=== PATIENT | male | born 1955 | race Caucasian/White ===

== ENCOUNTER → 2017-02-14 | Outpatient (CLI) | payer BC, OTHER ==
[~2017-02-14] MED LIST: CLC100X PO; OXYC5TAB PO
== END | disposition home or self-care (01) ==
LOC: C.PATHSPEC 16:32
PROVIDERS: ATTEND Dermatology
DX: L82.1 Other seborrheic keratosis (principal)

== ENCOUNTER 2024-07-12 11:17 | Inpatient (IN) ==
--- NOTE | 2024-07-12 11:36 | Emergency Department Note ---
Impression & Plan Acute hypoxic respiratory failure, Influenza A, Shortness of breath, Elevated troponin ED Provider Note NAME: YU LOMAX AGE: 68 SEX: M : 1955 ARRIVES VIA: Ambulance INFORMANT: Patient ED PROVIDER(S): Jw Sexton DO CHIEF COMPLAINT: Shortness of breath HPI: Patient is a 68-year-old male who presents to the ER for symptoms that started this past Monday. He admits to a cough, congestion, and shortness of breath. Has been a dry cough. Any movement makes him significantly more short of breath. He was referred in. He denies any headache or change in vision. No belly pain. No nausea, vomiting, or diarrhea. No swelling of the cast. No recent trips or travel. No history of blood clots or clotting disorders. He is a smoker. Last known 3 days ago. ADDITIONAL HISTORY OBTAINED: Per HPI Chronic Medical/Social Conditions Affecting Care: Per HPI PAST MEDICAL HISTORY:See Below PAST SURGICAL HISTORY:See Below FAMILY HISTORY:See Below SOCIAL HISTORY:See Below HOME MEDICATIONS:See Below ALLERGIES:See Below VITALS:See Below PHYSICAL EXAMINATION: GENERAL: Sitting up in bed, alert, moderate distress on 2 L nasal cannula but able to talk in full sentences EYE EXAM: normal conjunctiva. PERRL and EOM's grossly intact. OROPHARYNX: no exudate, no erythema, lips, buccal mucosa, and tongue normal and mucous membranes are moist NECK: supple, no nuchal rigidity, no adenopathy, non-tender LUNGS: Poor air movement bilaterally with faint wheezing. Normal chest wall mechanics HEART: no murmurs, S1 normal and S2 normal ABDOMEN: abdomen soft, non-tender, normo-active bowel sounds, no masses, no rebound or guarding. UPPER EXTREMITIES: upper extremities are grossly normal. LOWER EXTREMITIES: No pitting edema. Calves are equal bilaterally NEURO EXAM: Normal sensorium, cranial nerves II-XII grossly intact, normal speech, no gross weakness of arms, no gross weakness of legs. MEDICAL DECISION MAKING: Patient is a 68-year-old male who presents to the ER for shortness of breath associate with upper respiratory symptoms. IV was established and blood work was obtained. He is a smoker. He was initially placed on 3 L nasal cannula and was titrated up to 6 and then placed on high flow. Respiratory rate and symptoms did improve. Labs show mild leukocytosis of 12,000. No significant anemia. BMP with LFTs bilirubin is unremarkable. Troponin was elevated at 29 which I do favor is likely demand as he was fairly hypoxic upon presentation. Viral panel was positive for influenza. Patient was initially given IV fluids, Rocephin and azithromycin prior to the result of influenza. Case was discussed with the hospitalist for further evaluation management treatment. Patient was given Consults/Care Managements Discussions: Per MDM Triage Nursing notes reviewed. Limited review of prior medical records performed Vital Signs: reviewed and remarkable for hypoxic and tachycardic Differential diagnosis: Differential diagnoses includes but is not limited to pneumonia, bronchitis, COPD/Asthma exacerbation, pneumothorax, pulmonary embolism, congestive heart failure, acute coronary syndrome ER treatment provided: See below Diagnostics interpreted by me include EKG and cardiac monitoring as listed below: -Cardiac Monitoring: An order was placed for continuous cardiac monitoring. The monitor shows a rate of 101 with sinus rhythm. -ECG: Sinus rhythm rate of 103 PVCs QTc 450 -Laboratory studies:Interpreted by me as stated above in MDM and shown below. Imaging studies: Xrays: As interpreted by me: Portable AP upright 1 view of the chest shows no focal infiltrate CTs show: none Procedures:none Critical Care: I have personally spent 40 minutes of critical care time in the direct management of this patient. This includes bedside care, interpretation of diagnostic studies, and testing, discussion with consultants, patient, and family members, and other required patient management activities. This 40 minutes is in excess of all separately billable procedures. Past Med/Surg History Problem List (Updated 07/12/24 @ 14:25 by Jw Sexton DO) Elevated troponin (Acute) Shortness of breath (Acute) Influenza A (Acute) Acute hypoxic respiratory failure (Acute) History of colon polyps Vitamin D deficiency Hepatic steatosis Prediabetes diet controlled GERD (gastroesophageal reflux disease) Hyperlipemia, mixed Cigarette nicotine dependence Tobacco abuse Actinic keratosis (Acute) Dysplastic nevus (Acute) Medical History Arthritis Surgical History History of colonoscopy History of tooth extraction History of tonsillectomy History of rotator cuff surgery History of cholecystectomy S/P appendectomy Family History Mother Diabetes Father Prostate cancer Denies family history of Ovarian cancer Myocardial infarction Breast cancer Colorectal cancer Stroke Social History Smoking Status: Current every day smoker Tobacco Type: Cigarettes Age Started Using Tobacco: 15; packs per day: 1; Cigarettes Per Day: 1 ppd > advised npo status; Second Hand Exposure: No; Do You Dip or Chew Tobacco: No; Hx Alcohol Use: Yes Alcohol type: beer Alcohol Intake Frequency: 4 or More x per/Week Hx Substance Use: No Preferred Language: Qatari Communication Ability: Effective Visual Impairment: No Limitations Hearing Ability: Normal Vulnerability Researcher Required: No Beliefs That Will Affect Care: None marital status: Current Living Situation: Spouse current occupational status: retired Feels Safe at Home: Yes caffeine: Yes (coffee) Dental Care, Regularly: No Physical Activity Frequency: Daily Seatbelt Use: always Sunscreen Use: No Allergies Allergies Allergy/AdvReac Type Severity Reaction Status Date / Time Penicillins Allergy Severe Hives Verified 07/12/24 10:09 Home Meds Home Medications Medication Instructions Recorded Confirmed loperamide 2 mg tablet 4 mg PO .TODAY PRN Diarrhea 12/02/23 07/12/24 Previous Rx's Medication Instructions Recorded atorvastatin 10 mg tablet 10 mg PO QAM #90 tabs 12/25/23 omeprazole 20 mg capsule,delayed 20 mg PO QAM #90 caps 12/29/23 release bupropion HCl 150 mg tablet,12 hr 150 mg PO BID #180 ea 01/02/24 sustained-release Results & Data (ED) Vital Signs Vital Signs - 24 hr 07/12/24 11:22 07/12/24 11:24 07/12/24 11:30 Temperature 37 C Temperature Source Oral Pulse Rate 100 H 104 H Pulse Rate [Apical] Pulse Rate from SpO2 Sensor Respiratory Rate 19 Respiratory Effort / Characteristics Blood Pressure 134/78 Blood Pressure Mean 96 Pulse Oximetry 87 L 87 L Oxygen Delivery Method Room Air Room Air Oxygen Flow Rate Fraction of Inspired Oxygen Sepsis Recent Fever Within 48 Hours No Sepsis New/Unexplained Change in Mental Status N/A Sepsis Action Taken by Nursing No Action Required Oxygen Flow Rate - Titration 4 Pulse Oximetry Post Tiitration 94 07/12/24 11:30 07/12/24 11:33 07/12/24 11:36 Temperature Temperature Source Pulse Rate 97 H Pulse Rate [Apical] Pulse Rate from SpO2 Sensor 89 Respiratory Rate 24 Respiratory Effort / Characteristics Spontaneous Short of Breath SOB on Exertion Blood Pressure 134/97 Blood Pressure Mean 125 Pulse Oximetry 93 Oxygen Delivery Method Nasal Cannula Oxygen Flow Rate 4 Fraction of Inspired Oxygen Sepsis Recent Fever Within 48 Hours Sepsis New/Unexplained Change in Mental Status Sepsis Action Taken by Nursing Oxygen Flow Rate - Titration Pulse Oximetry Post Tiitration 07/12/24 12:00 07/12/24 12:03 07/12/24 12:46 Temperature Temperature Source Pulse Rate 106 H Pulse Rate [Apical] 107 H Pulse Rate from SpO2 Sensor 97 H Respiratory Rate 26 H 26 H Respiratory Effort / Characteristics Spontaneous Short of Breath Blood Pressure 139/87 Blood Pressure Mean 90 Pulse Oximetry 96 94 Oxygen Delivery Method Nasal Cannula High Flow Nasal Cannula Oxygen Flow Rate 4 20 Fraction of Inspired Oxygen 40 Sepsis Recent Fever Within 48 Hours Sepsis New/Unexplained Change in Mental Status Sepsis Action Taken by Nursing Oxygen Flow Rate - Titration Pulse Oximetry Post Tiitration 07/12/24 13:00 07/12/24 13:24 07/12/24 13:30 Temperature Temperature Source Pulse Rate 113 H 109 H Pulse Rate [Apical] Pulse Rate from SpO2 Sensor 95 H 109 H Respiratory Rate 25 H 21 Respiratory Effort / Characteristics Blood Pressure 111/74 114/51 L Blood Pressure Mean 86 60 Pulse Oximetry 95 94 Oxygen Delivery Method High Flow Nasal Cannula High Flow Nasal Cannula Oxygen Flow Rate 20 20 Fraction of Inspired Oxygen 40 40 Sepsis Recent Fever Within 48 Hours Sepsis New/Unexplained Change in Mental Status Sepsis Action Taken by Nursing Oxygen Flow Rate - Titration Pulse Oximetry Post Tiitration Laboratory Data 07/12/24 11:25 07/12/24 11:25 Lab Results 07/12/24 07/12/24 Range/Units 11:25 11:29 WBC 12.26 H (4.8-10.8) K/ul RBC 4.91 (4.70-6.10) M/uL Hgb 14.1 (14.0-18.0) g/dl Hct 42.8 (42.0-52.0) % MCV 87.2 (80.0-100.0) fL MCH 28.7 (25.0-34.0) pg MCHC 32.9 (32.0-36.0) g/dL RDW Std Deviation 46.6 H (36.4-46.3) fL RDW Coeff of Eben 14.6 H (11.5-14.5) % Plt Count 221 (130-400) K/uL MPV 9.7 (9.4-12.4) fL Immature Gran % (Auto) 0.6 % Neut % (Auto) 79.4 % Lymph % (Auto) 9.5 % [place] % (Auto) 10.1 % Eos % (Auto) 0.2 % Baso % (Auto) 0.2 % Neut # (Auto) 9.74 H (1.40-6.50) K/uL Lymph # (Auto) 1.16 L (1.20-3.40) K/uL [place] # (Auto) 1.24 H (0.11-0.59) K/uL Eos # (Auto) 0.03 (0.00-0.50) K/uL Baso # (Auto) 0.02 (0.00-0.20) K/uL Immature Gran # (Auto) 0.07 (0.01-0.20) K/uL Sodium 136 (136-145) mmol/L Potassium 3.5 (3.5-5.1) mmol/L Chloride 102 (98-107) mmol/L Carbon Dioxide 25 (21-32) mmol/L Anion Gap 9 (3-11) BUN 11 (6-23) mg/dl Creatinine 0.91 (0.6-1.4) mg/dl Est Cr Clr Drug Dosing 79.9 ml/min eGFR 91.80 BUN/Creatinine Ratio 12.1 (10-20) Glucose 130 H (70-99(Fasting)) mg/dl Calcium 8.9 (8.6-10.3) mg/dl Total Bilirubin 0.5 (0.2-1.0) mg/dl AST 67 H (13-39) U/L ALT 27 (7-52) U/L Alkaline Phosphatase 81 (34-104) U/L Troponin I High Sens 29.9 H (0-20) pg/ml Total Protein 7.3 (6.0-8.3) gm/dl Albumin 4.0 (3.4-5.0) gm/dl Globulin 3.3 (2.5-4.0) gm/dl Albumin/Globulin Ratio 1.2 (0.9-2) Lipase 5 L (11-82) U/L Adenovirus (PCR) Not Detected (NotDetected) B. pertussis DNA (PCR) Not Detected (NotDetected) B.parapertussis DNA PCR Not Detected (NotDetected) C. pneumoniae DNA (PCR) Not Detected (NotDetected) Coronavirus OC43 (PCR) Not Detected (NotDetected) Coronavirus HKU1 (PCR) Not Detected (NotDetected) Coronavirus 229E (PCR) Not Detected (NotDetected) SARS-CoV-2 (PCR) Not Detected (NotDetected) Coronavirus NL63 (PCR) Not Detected (NotDetected) Human Metapneumovir PCR Not Detected (NotDetected) Influenza A (H3) PCR DETECTED A (NotDetected) Influenza Type B (PCR) Not Detected (NotDetected) M. pneumoniae (PCR) Not Detected (NotDetected) Parainfluenza 1 (PCR) Not Detected (NotDetected) Parainfluenza 2 (PCR) Not Detected (NotDetected) Parainfluenza 3 (PCR) Not Detected (NotDetected) Parainfluenza 4 (PCR) Not Detected (NotDetected) RSV (PCR) Not Detected (NotDetected) Entero/Rhino (PCR) Not Detected (NotDetected) Administered Medications Discontinued Medications Albuterol (Albut/Ipratrop 3mg/0.5mg Neb 3 Ml Vial) 6 ml NEB NOW STA; Protocol Stop: 07/12/24 11:32 Last Admin: 07/12/24 11:50 Dose: 6 ml Documented By: DAYSIW Azithromycin (Azithromycin 250 Mg Tab) 500 mg PO NOW ONE Stop: 07/12/24 12:33 Last Admin: 07/12/24 12:53 Dose: 500 mg Documented By: DAYSIW Ceftriaxone Sodium (Rocephin) 2,000 mg in 50 mls @ 100 mls/hr IV NOW STA Stop: 07/12/24 13:01 Last Infusion: 07/12/24 13:28 Dose: Infused Documented By: Admin: 07/12/24 12:53 Dose: 100 mls/hr Documented By: KRISTI Methylprednisolone (Methylprednisolone 125 Mg/2 Ml Vial) 60 mg IV NOW STA Stop: 07/12/24 11:32 Last Admin: 07/12/24 11:50 Dose: 60 mg Documented By: NDW Imaging Data Radiologist's Impression: Chest X-Ray 07/12/24 11:31 XR chest 1V portable HISTORY: 68 years-old Male Chest pain, nonspecific COMPARISON: 12/02/2023 TECHNIQUE: AP view the chest FINDINGS: Cardiac silhouette is upper limits of normal in size. No pneumothorax, pleural effusion or airspace consolidation. Bones appear grossly intact. IMPRESSION: Cardiomegaly without acute process. ACT 112: Negative or not required by law. The above report was generated using voice recognition software. It may contain grammatical, syntax or spelling errors. Electronically signed by: Edmar Christianson M.D. 07/12/2024 12:32 PM Discharge Plan Visit Data Chief Complaint: Shortness of Breath/Dyspnea Stated Complaint: SOB ED Provider: Jw Sexton Discharge Problem: Acute hypoxic respiratory failure, Influenza A, Shortness of breath, Elevated troponin Forms Stand Alone Forms: My [facility] [place] [address]lines Prescriptions Prescriptions: No Action atorvastatin 10 mg tablet 10 mg PO QAM Qty: 90 3RF omeprazole 20 mg capsule,delayed release(DR/EC) 20 mg PO QAM Qty: 90 3RF bupropion HCl 150 mg tablet sustained-release 12 hr 150 mg PO BID Qty: 180 3RF loperamide [Anti-Diarrhea] 2 mg Tablet 4 mg PO .TODAY PRN (Reason: Diarrhea) Rx Instructions: administer after each loose stool until symptoms controlled; do not exceed 8 mg per 24 hrs Referrals Referrals: Mary Jane David MD [Primary Care Provider] -
[2024-07-12] MEDS: ALBUT/IPRATROP 3MG/0.5MG NEB 3 ML VIAL NEB STA (11:50)
[2024-07-12] MEDS: methylPREDNISolone 125 MG/2 ML VIAL IV STA (11:50)
[2024-07-12 11:55] LABS: Basophils # (auto) 0.02 K/uL (0.00-0.20); Basophils % (auto) 0.2 %; Eosinophils # (auto) 0.03 K/uL (0.00-0.50); Eosinophils % (auto) 0.2 %; Hematocrit (blood only) 42.8 % (42.0-52.0); Hemoglobin 14.1 g/dl (14.0-18.0); Immature Granulocytes # (auto) 0.07 K/uL (0.01-0.20); Immature Granulocytes % (auto) 0.6 %; Lymphocytes # (auto) 1.16 K/uL (1.20-3.40); Lymphocytes % (auto) 9.5 %; Mean Corpuscular Hemoglobin 28.7 pg (25.0-34.0); Mean Corpuscular Hgb Conc 32.9 g/dL (32.0-36.0); Mean Corpuscular Volume 87.2 fL (80.0-100.0); Mean Platelet Volume 9.7 fL (9.4-12.4); Monocytes # (auto) 1.24 K/uL (0.11-0.59); Monocytes % (auto) 10.1 %; Neutrophils # (auto) 9.74 K/uL (1.40-6.50); Neutrophils % (auto) 79.4 %; Platelet Count 221 K/uL (130-400); RDW Coefficient of Variation 14.6 % (11.5-14.5); RDW Standard Deviation 46.6 fL (36.4-46.3); Red Blood Count 4.91 M/uL (4.70-6.10); White Blood Count 12.26 K/ul (4.8-10.8)
[2024-07-12 12:11] LABS: Albumin Globulin Ratio 1.2 (0.9-2); BUN Creatinine Ratio 12.1 (10-20); Bilirubin,Total 0.5 mg/dl (0.2-1.0); Calcium 8.9 mg/dl (8.6-10.3); Creatinine Clr Calc Pharmacy 79.9 ml/min; Globulin 3.3 gm/dl (2.5-4.0); Potassium 3.5 mmol/L (3.5-5.1); Total Protein 7.3 gm/dl (6.0-8.3)
[2024-07-12 12:17] LABS: Troponin I High Sensitivity 29.9 pg/ml (0-20)
[2024-07-12 12:33] LABS: Adenovirus PCR Not Detected (NotDetected); Bordetella parapertussis PCR Not Detected (NotDetected); Bordetella pertussis PCR Not Detected (NotDetected); Chlamydia pneumoniae PCR Not Detected (NotDetected); Coronavirus 229E PCR Not Detected (NotDetected); Coronavirus CoV-2 (COVID19)PCR Not Detected (NotDetected); Coronavirus HKU1 PCR Not Detected (NotDetected); Coronavirus NL63 PCR Not Detected (NotDetected); Coronavirus OC43PCR Not Detected (NotDetected); Human Metapneumovirus PCR Not Detected (NotDetected); Influenza A (H3) PCR DETECTED (NotDetected); Influenza B PCR Not Detected (NotDetected); Mycoplasma pneumoniae PCR Not Detected (NotDetected); Parainfluenza Virus 1 PCR Not Detected (NotDetected); Parainfluenza Virus 2 PCR Not Detected (NotDetected); Parainfluenza Virus 3 PCR Not Detected (NotDetected); Parainfluenza Virus 4 PCR Not Detected (NotDetected); Respiratory Syncytial VirusPCR Not Detected (NotDetected); Rhinovirus/Enterovirus PCR Not Detected (NotDetected)
--- NOTE | 2024-07-12 12:34 | XRay Report ---
XR chest 1V portable HISTORY: 68 years-old Male Chest pain, nonspecific COMPARISON: 12/02/2023 TECHNIQUE: AP view the chest FINDINGS: Cardiac silhouette is upper limits of normal in size. No pneumothorax, pleural effusion or airspace c onsolidation. Bones appear grossly intact. IMPRESSION: Cardiomegaly without acute process. ACT 112: Negative or not required by law. The above report was generated using voice recognition software. It may contain grammatical, syntax o r spelling errors. Electronically signed by: Edmar Christianson M.D. 07/12/2024 12:32 PM
[2024-07-12] MEDS: AZITHROMYCIN 250 MG TAB PO ONE (12:53)
[2024-07-12] MEDS: cefTRIAXone SODIUM 2,000 MG/50 ML BAG IV STA (12:53)
--- NOTE | 2024-07-12 14:25 | History & Physical Report ---
Date of Service July 12, 2024 Assessment & Plan (1) Influenza A: (2) Acute hypoxic respiratory failure: (3) Elevated troponin: (4) Tobacco abuse: Plan This patient is a 68-year-old male with a history of prediabetes, GERD, fatty liver, HL, current smoker, chronic diarrhea, who presents to the ER with nonproductive cough, SOB, and congestion x 2 days, found to have influenza A and acute respiratory failure with hypoxemia requiring high flow nasal cannula 20 L 40% FiO2 at the time of admission. #Influenza A/acute respiratory failure with hypoxemia-in the setting of him being a smoker but no formal diagnosis of COPD. Has wheezing and is currently requiring HFNC 20L 40% FiO2. CXR without pneumonia. Procalcitonin checked and negative so doubt secondary bacterial pneumonia. No antibiotics needed. Admit to PCU for telemetry monitoring given significant respiratory failure Start Tamiflu 75 Mg p.o. twice daily x 5-day course Continue supplemental O2 and wean off as able to keep pulse ox greater than 90% Give scheduled DuoNebs every 6 hours Continue IV steroids with Solu-Medrol 60 Mg IV twice daily as he is a 50 pack year smoker and likely has COPD along with the wheezing #Elevated troponin/hyperlipidemia-troponin mildly elevated at 29 and repeat 2 hours later 28. Most likely myocardial demand ischemia as he denies chest pain and ECG is without ischemic changes Trend serial troponin, no need for echocardiogram Continue home statin #Current waezji-28-twar-year smoker, did quit 3 days prior to admission due to acute illness. Encouraged ongoing smoking cessation Ordered nicotine patch as needed #Prediabetes-most recent hemoglobin A1c 6.0% and he is not on medications at home Given steroid usage as an inpatient, will order Accu-Cheks and supplemental NovoLog, can add basal insulin if needed Check hemoglobin A1c in the morning #Fatty liver/elevated AST-with known fatty liver demonstrated on liver ultrasound in 12/2023, here with AST elevated at 67 slightly worse than baseline. T. bili and ALT, alk phos all normal. Most likely secondary to baseline fatty liver and influenza can also elevate liver enzymes. No need for imaging Follow LFTs in the morning Okay to continue home statin #GERD/chronic diarrhea-his diarrhea that was ongoing for 6 months he reports is now resolved. Continue PPI, Imodium as needed #Anxiety disorder-stable Continue home bupropion DVT prophylaxis-Lovenox SQ, SCDs Disposition-admit to PCU History of Present Illness Chief Complaint: Cough, shortness of breath Primary Care Provider: Mary Jane David MD This patient is a 68-year-old male with a history of prediabetes, GERD, fatty liver, HL, current smoker, chronic diarrhea, who presents to the ER with nonproductive cough, SOB, and sinus and chest congestion x 2 days. Denies N/V, no headache or abdominal pain, no diarrhea. His is also acutely ill with similar symptoms. He tested positive for influenza A in the ED. CXR did not show any pneumonia or evidence of heart failure. He initially was placed on 3 LNC O2 and quickly had to be escalated to high flow nasal cannula 20 L and FiO2 of 40%. He will be admitted for influenza A and acute respiratory failure with hypoxemia. In the ED, he was given IV steroids, nebulizer treatment, and a dose of ceftriaxone and azithromycin. Allergies Allergy/AdvReac Type Severity Reaction Status Date / Time Penicillins Allergy Severe Hives Verified 07/12/24 10:09 Home Medications Medication Instructions Recorded Confirmed Type atorvastatin 10 mg tablet 10 mg PO QAM #90 tabs 12/25/23 07/12/24 Rx omeprazole 20 mg capsule,delayed 20 mg PO QAM #90 caps 12/29/23 07/12/24 Rx release bupropion HCl 150 mg tablet,12 hr 150 mg PO BID #180 ea 01/02/24 07/12/24 Rx sustained-release Past Med/Surg History Problem List Elevated troponin (Acute) Shortness of breath (Acute) Influenza A (Acute) Acute hypoxic respiratory failure (Acute) History of colon polyps Vitamin D deficiency Hepatic steatosis Prediabetes diet controlled GERD (gastroesophageal reflux disease) Hyperlipemia, mixed Cigarette nicotine dependence Tobacco abuse Actinic keratosis (Acute) Dysplastic nevus (Acute) Medical History Arthritis Surgical History History of colonoscopy History of tooth extraction History of tonsillectomy History of rotator cuff surgery right History of cholecystectomy S/P appendectomy Family History Mother Diabetes Father Prostate cancer Denies family history of Ovarian cancer Myocardial infarction Breast cancer Colorectal cancer Stroke Social History Smoking Status: Current every day smoker Tobacco Type: Cigarettes Age Started Using Tobacco: 15; packs per day: 1; Cigarettes Per Day: 20; Second Hand Exposure: No; Do You Dip or Chew Tobacco: No; Tobacco Cessation Education Requested by Patient: No Hx Alcohol Use: Yes Alcohol type: beer Alcohol Intake Frequency: 4 or More x per/Week Hx Substance Use: No Preferred Language: Spanish Communication Ability: Effective Visual Impairment: No Limitations Hearing Ability: Normal Field Cane Scale Clerk Required: No Beliefs That Will Affect Care: None marital status: Current Living Situation: Spouse current occupational status: retired Other Information That Helps Us Care for You: No Feels Safe at Home: Yes Safety Concerns: Feels Safe At This Time caffeine: Yes (coffee) Dental Care, Regularly: No Physical Activity Frequency: Daily Seatbelt Use: always Sunscreen Use: No Review of Systems Review of Systems: All systems reviewed & are unremarkable except as noted in HPI & below Physical Exam Constitutional: WD/WN, vitals as above (Appears ill) Eyes: PERRL, conjunctivae normal, anicteric sclerae ENMT: external ear and nose normal, oropharynx normal Neck: trachea midline, no thyromegaly Respiratory: + tachypneic (Mild when speaking in comp lete sentences); no cough Auscultation: + wheezes (Expiratory on the right); no crackles and no rhonchi Cardiovascular: RRR, no murmur, no edema Chest (Breasts): Chest: normal inspection of chest Gastrointestinal (Abdomen): normal bowel sounds, soft, nontender, no hepatosplenomegaly Musculoskeletal: Extremities: extremities normal to inspection; no cyanosis and no clubbing Skin: no rashes, warm and dry Neurologic: moves all extremities and awake; no focal motor deficits Psychiatric: A+Ox3, euthymic affect Lymphatic: no lymphedema Results & Data Results & Data Vital Signs (Past 12 Hours) Vital Signs Temp Pulse Pulse Resp BP Pulse Ox O2 Del Method 07/12/24 13:30 114/51 L 12/27/24 13:24 109 H 21 94 High Flow Nasal Cannula 07/12/24 13:00 113 H 25 H 111/74 95 High Flow Nasal Cannula 07/12/24 12:46 107 H 26 H 94 High Flow Nasal Cannula 07/12/24 12:03 106 H 26 H 96 Nasal Cannula 07/12/24 12:00 139/87 07/12/24 11:36 97 H 24 93 Nasal Cannula 07/12/24 11:30 134/97 07/12/24 11:30 87 L Room Air 07/12/24 11:24 104 H 07/12/24 11:22 37 C 100 H 19 134/78 87 L Room Air O2 Flow Rate FiO2 07/12/24 13:30 07/12/24 13:24 20 40 07/12/24 13:00 20 40 07/12/24 12:46 20 40 07/12/24 12:03 4 07/12/24 12:00 07/12/24 11:36 4 07/12/24 11:30 07/12/24 11:30 07/12/24 11:24 07/12/24 11:22 Laboratory Results CBC, BMP, LFTs, lipase, troponin, viral respiratory Bio[employer] panel reviewed Diagnostic Findings Chest x-ray image personally reviewed by me ECG Additional Comments: ECG on 07/12/2024 at 11:29 AM with sinus tachycardia with PVCs, rate 103, LAFB, no ischemic changes Code Status & VTE Plan Code Status Full code VTE Prophylaxis Plan VTE Prophylaxis will be ordered: Yes PG Care Time/CCT Total # of Minutes Spent Total Time Spent with Patient: Total time spent is greater than 50% in coordination of care (as documented) at patient's floor/unit and/or counseling patient: Coding Level of Care Code 74317 INT INP/OBS CARE 3/75MIN Diagnoses Influenza A J10.1 Acute hypoxic respiratory failure J96.01 Elevated troponin R79.89 Tobacco abuse Z72.0
--- NOTE | 2024-07-12 15:56 | Electrocardiogram Report ---
Test Reason : Blood Pressure : */* mmHG Vent. Rate : 103 BPM Atrial Rate : 103 BPM P-R Int : 170 ms QRS Dur : 90 ms QT Int : 344 ms P-R-T Axes : 70 -67 75 degrees QTcB Int : 450 ms Sinus tachycardia with frequent Premature ventricular complexes Left anterior fascicular block Abnormal ECG When compared with ECG of 02-Dec-2023 00:12, Premature ventricular complexes are now Present SD interval has decreased Vent. rate has increased by 46 bpm QRS axis Shifted left Confirmed by Wilder Oliveira ([id number]) on 07/12/2024 3:55:50 PM Referred By: Confirmed By: Wilder Oliveira
[2024-07-12] MEDS: OSELTAMIVIR PHOSPHATE 75 MG CAP PO STA (15:58)
[2024-07-12] MEDS ORDERED: ONDANSETRON INJ 2 MG/ML 2 ML VIAL IV PRN (16:43)
[2024-07-12] MEDS ORDERED: CARBOHYDRATES FOR HYPOGLYCEMIA PO PRN (16:43)
[2024-07-12] MEDS ORDERED: GLUCAGON FOR INJ 1 MG VIAL SQ PRN (16:43)
[2024-07-12] MEDS ORDERED: GLUCOSE 40% GEL 15 GM TUBE PO PRN (16:43)
[2024-07-12] MEDS ORDERED: NICOTINE 14 MG/24 HR PATCH TD PRN (16:43)
[2024-07-12] MEDS ORDERED: GLUCOSE 10 TAB/TUBE PO PRN (16:43)
[2024-07-12] MEDS ORDERED: DEXTROSE 50% 50 ML SYRINGE IV PRN (16:43)
[2024-07-12] MEDS ORDERED: ACETAMINOPHEN 325 MG TAB PO PRN (16:43)
[2024-07-12] MEDS ORDERED: LOPERAMIDE HCL 2 MG CAP PO PRN (16:58)
[2024-07-12] MEDS: INSULIN ASPART PER UNIT CHARGE SC SCH (17:21)
[2024-07-12] MEDS: ENOXAPARIN INJ 40 MG/0.4 ML SYR SQ SCH (17:24)
[2024-07-12] MEDS: ALBUT/IPRATROP 3MG/0.5MG NEB 3 ML VIAL NEB SCH (19:23)
[2024-07-12] MEDS: OSELTAMIVIR PHOSPHATE 75 MG CAP PO SCH (20:23)
[2024-07-12] MEDS: buPROPion SR 150 MG TABCR PO SCH (20:23)
[2024-07-12] MEDS: methylPREDNISolone 60 MG in SYRINGE 0 ML IV SCH (20:23)
[2024-07-12] MEDS ORDERED: methylPREDNISolone 125 MG/2 ML VIAL IV SCH (21:00)
[2024-07-13 08:57] LABS: Hematocrit (blood only) 41.7 % (42.0-52.0); Hemoglobin 13.7 g/dl (14.0-18.0); Mean Corpuscular Hemoglobin 28.5 pg (25.0-34.0); Mean Corpuscular Hgb Conc 32.9 g/dL (32.0-36.0); Mean Corpuscular Volume 86.7 fL (80.0-100.0); Mean Platelet Volume 9.5 fL (9.4-12.4); Platelet Count 231 K/uL (130-400); RDW Coefficient of Variation 14.6 % (11.5-14.5); RDW Standard Deviation 47.1 fL (36.4-46.3); Red Blood Count 4.81 M/uL (4.70-6.10); White Blood Count 16.62 K/ul (4.8-10.8)
[2024-07-13 09:17] LABS: Albumin Globulin Ratio 1.2 (0.9-2); Albumin Level 3.8 gm/dl (3.4-5.0); BUN Creatinine Ratio 18.8 (10-20); Bilirubin,Total 0.4 mg/dl (0.2-1.0); Calcium 9.2 mg/dl (8.6-10.3); Creatinine Clr Calc Pharmacy 77.8 ml/min; Globulin 3.1 gm/dl (2.5-4.0); Potassium 3.6 mmol/L (3.5-5.1); Total Protein 6.9 gm/dl (6.0-8.3)
[2024-07-13 09:30] LABS: Basophils # (auto) 0.02 K/uL (0.00-0.20); Basophils % (auto) 0.1 %; Eosinophils # (auto) 0.01 K/uL (0.00-0.50); Eosinophils % (auto) 0.1 %; Immature Granulocytes % (auto) 0.6 %; Lymphocytes # (auto) 0.84 K/uL (1.20-3.40); Lymphocytes % (auto) 5.1 %; Monocytes # (auto) 0.34 K/uL (0.11-0.59); Neutrophils # (auto) 15.31 K/uL (1.40-6.50); Neutrophils % (auto) 92.1 %
[2024-07-13] MEDS: ATORVASTATIN 10 MG TAB PO SCH (09:42)
[2024-07-13] MEDS: PANTOprazole 40 MG TAB PO SCH (09:42)
[2024-07-13 10:41] LABS: Estimated Average Glucose 131 mg/dl; Hemoglobin A1C 6.2 % (4.5-5.6)
--- NOTE | 2024-07-13 10:55 | Hospitalist Progress Note ---
<Statement entered by Janice Funez MD - 07/13/24 17:08> I have reviewed vital signs, chart notes, labs and imaging. I have also discussed the management of the patient with the JANE and I agree with the exam findings documented in the history and physical examination and the documented assessment and plan unless otherwise stated below. 68-year-old man with extensive smoking history admitted with acute hypoxic respiratory failure related to influenza A and presumed acute exacerbation of COPD hypoxia significantly improved though still requiring supplemental oxygen today, we will decrease his steroids continue Tamiflu Date of Service July 13, 2024 Assessment & Plan (1) Influenza A: Plan: This patient is a 68-year-old male with a history of prediabetes, GERD, fatty liver, HL, current smoker, chronic diarrhea, who presents to the ER with nonproductive cough, SOB, and congestion x 2 days, found to have influenza A and acute respiratory failure with hypoxemia requiring high flow nasal cannula 20 L 40% FiO2 at the time of admission. #Influenza A/acute respiratory failure with hypoxemia-in the setting of him being a smoker but no formal diagnosis of COPD. He is no longer wheezing on examination, O2 at 4LNC. CXR without pneumonia. Procalcitonin checked and negative so doubt secondary bacterial pneumonia. No antibiotics needed. Admit to PCU for telemetry monitoring given significant respiratory failure Start Tamiflu 75 Mg p.o. twice daily x 5-day course Continue supplemental O2 and wean off as able to keep pulse ox greater than 90% Give scheduled DuoNebs every 6 hours He was on IV steroids with Solu-Medrol 60 Mg IV twice daily as he is a 50 pack year smoker and likely has COPD along with the wheezing - will switch to oral prednisone 40mg once daily x 5 days, then 20mg daily x 5 days (2) Acute hypoxic respiratory failure: (3) Elevated troponin: Plan: #Elevated troponin/hyperlipidemia-troponin mildly elevated at 29 and repeat 2 hours later 28. Most likely myocardial demand ischemia as he denies chest pain and ECG is without ischemic changes Trend serial troponin, no need for echocardiogram Continue home statin (4) Tobacco abuse: Plan: #Current sgbsvi-05-unbv-year smoker, did quit 3 days prior to admission due to acute illness. Encouraged ongoing smoking cessation Ordered nicotine patch as needed Plan #Prediabetes-most recent hemoglobin A1c 6.0% and he is not on medications at home Given steroid usage as an inpatient, will order Accu-Cheks and supplemental NovoLog, can add basal insulin if needed. Will monitor blood sugars and adjust as needed. Hemoglobin A1C 6.2 #Fatty liver/elevated AST-with known fatty liver demonstrated on liver ultrasound in 12/2023, here with AST elevated at 67 slightly worse than baseline. T. bili and ALT, alk phos all normal. Most likely secondary to baseline fatty liver and influenza can also elevate liver enzymes. No need for imaging Follow LFTs in the morning Okay to continue home statin #GERD/chronic diarrhea-his diarrhea that was ongoing for 6 months he reports is now resolved. Continue PPI, Imodium as needed #Anxiety disorder-stable Continue home bupropion DVT prophylaxis-Lovenox SQ, SCDs Disposition-admit to PCU Admission and Anticipated Discharge Date Admission Date: July 12, 2024 Sylvester Núñez is a 68-year-old man with a history of prediabetes, GERD, fatty liver, HL, current smoker, chronic diarrhea. He presented to the ER with nonproductive cough, SOB, and sinus and chest congestion x 2 days. He was found to be positive for Influenza A in the Ed. CXR did not show pneumonia or evidence of HF. In the ED, he was placed on 3LNC 02 and quickly escalated to 20L and FiO2 of 40%. He was given IV steriods, nebulizer treatment, Ceftriaxone and Azithromycin in the ED. Today, he is on 4LNC. He states he has intermittent cough and wheezing, but feels these both are improvement. He denies chest pain, N/V, headache, abdominal pain, constipation, diarrhea, urinary symptoms, fevers or chills. Review of Systems Constitutional: no fever and no chills Respiratory: + cough (Clear Sputum, Improving) and + wheezing (Intermittent); no chest congestion and no dyspnea Cardiovascular: no chest pain Gastrointestinal: no abdominal pain, no nausea, no vomiting, no constipation and no diarrhea/loose stools Genitourinary: no dysuria or no urinary frequency Integumentary: no rash Physical Exam Constitutional: WD/WN, vitals as above Eyes: PERRL, conjunctivae normal, anicteric sclerae Respiratory: normal respiratory effort Auscultation: lungs clear to auscultation bilaterally (Diminished bilateral lower lobes) Cardiovascular: Rate/Rhythm: regular rate and regular rhythm Extremities: no edema Gastrointestinal (Abdomen): Percussion/Palpation: abdomen soft; abdomen nontender Skin: no rashes Psychiatric: Orientation: alert and oriented x 3 Results & Data Results & Data Vital Signs (Past 12 Hours) Vital Signs Temp Pulse Pulse Resp BP Pulse Ox O2 Del Method 07/13/24 10:03 72 18 92 Nasal Cannula 07/13/24 07:14 68 07/13/24 07:14 36.6 C 67 19 114/66 94 Nasal Cannula 07/13/24 07:01 58 L 18 93 Nasal Cannula 07/13/24 04:00 36.7 C 54 L 18 120/74 92 Nasal Cannula 07/13/24 00:00 60 O2 Flow Rate 07/13/24 10:03 3 07/13/24 07:14 07/13/24 07:14 4 07/13/24 07:01 5 07/13/24 04:00 5 07/13/24 00:00 Laboratory Results 07/13/24 07/13/24 07/13/24 Range/Units 16:16 11:01 08:39 WBC 16.62 H (4.8-10.8) K/ul RBC 4.81 (4.70-6.10) M/uL Hgb 13.7 L (14.0-18.0) g/dl Hct 41.7 L (42.0-52.0) % MCV 86.7 (80.0-100.0) fL MCH 28.5 (25.0-34.0) pg MCHC 32.9 (32.0-36.0) g/dL RDW Std Deviation 47.1 H (36.4-46.3) fL RDW Coeff of Eben 14.6 H (11.5-14.5) % Plt Count 231 (130-400) K/uL MPV 9.5 (9.4-12.4) fL Immature Gran % (Auto) 0.6 % Neut % (Auto) 92.1 % Lymph % (Auto) 5.1 % Ellsworth % (Auto) 2.0 % Eos % (Auto) 0.1 % Baso % (Auto) 0.1 % Neut # (Auto) 15.31 H (1.40-6.50) K/uL Lymph # (Auto) 0.84 L (1.20-3.40) K/uL Ellsworth # (Auto) 0.34 (0.11-0.59) K/uL Eos # (Auto) 0.01 (0.00-0.50) K/uL Baso # (Auto) 0.02 (0.00-0.20) K/uL Immature Gran # (Auto) 0.10 (0.01-0.20) K/uL Sodium 137 (136-145) mmol/L Potassium 3.6 (3.5-5.1) mmol/L Chloride 103 (98-107) mmol/L Carbon Dioxide 27 (21-32) mmol/L Anion Gap 7 (3-11) BUN 16 (6-23) mg/dl Creatinine 0.85 (0.6-1.4) mg/dl Est Cr Clr Drug Dosing 77.8 ml/min eGFR 94.65 BUN/Creatinine Ratio 18.8 (10-20) Glucose 241 H (70-99(Fasting)) mg/dl POC Glucose 172 H 164 H (70-99) mg/dl Estimat Average Glucose 131 mg/dl Hemoglobin A1c 6.2 H (4.5-5.6) % Calcium 9.2 (8.6-10.3) mg/dl Magnesium 2.0 (1.7-2.4) mg/dl Total Bilirubin 0.4 (0.2-1.0) mg/dl AST 62 H (13-39) U/L ALT 27 (7-52) U/L Alkaline Phosphatase 69 (34-104) U/L Troponin I High Sens (0-20) pg/ml Total Protein 6.9 (6.0-8.3) gm/dl Albumin 3.8 (3.4-5.0) gm/dl Globulin 3.1 (2.5-4.0) gm/dl Albumin/Globulin Ratio 1.2 (0.9-2) 07/13/24 07/12/24 07/12/24 Range/Units 07:15 21:02 17:35 WBC (4.8-10.8) K/ul RBC (4.70-6.10) M/uL Hgb (14.0-18.0) g/dl Hct (42.0-52.0) % MCV (80.0-100.0) fL MCH (25.0-34.0) pg MCHC (32.0-36.0) g/dL RDW Std Deviation (36.4-46.3) fL RDW Coeff of Eben (11.5-14.5) % Plt Count (130-400) K/uL MPV (9.4-12.4) fL Immature Gran % (Auto) % Neut % (Auto) % Lymph % (Auto) % Ellsworth % (Auto) % Eos % (Auto) % Baso % (Auto) % Neut # (Auto) (1.40-6.50) K/uL Lymph # (Auto) (1.20-3.40) K/uL Ellsworth # (Auto) (0.11-0.59) K/uL Eos # (Auto) (0.00-0.50) K/uL Baso # (Auto) (0.00-0.20) K/uL Immature Gran # (Auto) (0.01-0.20) K/uL Sodium (136-145) mmol/L Potassium (3.5-5.1) mmol/L Chloride (98-107) mmol/L Carbon Dioxide (21-32) mmol/L Anion Gap (3-11) BUN (6-23) mg/dl Creatinine (0.6-1.4) mg/dl Est Cr Clr Drug Dosing ml/min eGFR BUN/Creatinine Ratio (10-20) Glucose (70-99(Fasting)) mg/dl POC Glucose 133 H 148 H (70-99) mg/dl Estimat Average Glucose mg/dl Hemoglobin A1c (4.5-5.6) % Calcium (8.6-10.3) mg/dl Magnesium (1.7-2.4) mg/dl Total Bilirubin (0.2-1.0) mg/dl AST (13-39) U/L ALT (7-52) U/L Alkaline Phosphatase (34-104) U/L Troponin I High Sens 30.5 H (0-20) pg/ml Total Protein (6.0-8.3) gm/dl Albumin (3.4-5.0) gm/dl Globulin (2.5-4.0) gm/dl Albumin/Globulin Ratio (0.9-2) PG Care Time/CCT Total # of Minutes Spent Total Time Spent with Patient: Total time spent is greater than 50% in coordination of care (as documented) at patient's floor/unit and/or counseling patient: Coding [place] [address] SUB INP/OBS CARE 2/35MIN Patient Type Established History Expanded Problem Focused Exam Expanded Problem Focused Medical Decision Making Moderate Complexity Diagnoses Influenza A J10.1 Acute hypoxic respiratory failure J96.01 Elevated troponin R79.89 Tobacco abuse Z72.0
[2024-07-13] MEDS ORDERED: COUGH DROP (SUGAR FREE) LOZ 24 LOZ/1 BOX BUCCAL PRN (17:18)
[2024-07-14] MEDS: predniSONE 20 MG TAB PO SCH (08:36)
--- NOTE | 2024-07-14 13:33 | Hospitalist Progress Note ---
Date of Service July 14, 2024 Assessment & Plan (1) Influenza A: Plan: This patient is a 68-year-old male with a history of prediabetes, GERD, fatty liver, HL, current smoker, chronic diarrhea, who presents to the ER with nonproductive cough, SOB, and congestion x 2 days, found to have influenza A and acute respiratory failure with hypoxemia requiring high flow nasal cannula 20 L 40% FiO2 at the time of admission. #Influenza A/acute respiratory failure with hypoxemia-in the setting of him being a smoker but no formal diagnosis of COPD. O2 at 4LNC - nursing has tried to wean without success once he ambulates/moves he desats to the 80s. CXR without pneumonia. Procalcitonin checked and negative so doubt secondary bacterial pneumonia. No antibiotics needed. Has not needed high flow O2 for 2 day, transfer to Med/Surg w/o tele. Tamiflu 75 Mg p.o. twice daily x 5-day course. Had vivid dreams last night, discussed most likely secondary to steroid use. Continue supplemental O2 and wean off as able to keep pulse ox greater than 90% Give scheduled DuoNebs every 6 hours He was on IV steroids with Solu-Medrol 60 Mg IV twice daily as he is a 50 pack year smoker and likely has COPD along with the wheezing - switched to oral prednisone 40mg once daily x 5 days, then 20mg daily x 5 days (2) Acute hypoxic respiratory failure: Plan: See #1 (3) Elevated troponin: Plan: #Elevated troponin/hyperlipidemia-troponin mildly elevated at 29 --> 28 --> 30.5. Most likely myocardial demand ischemia as he denies chest pain and ECG is without ischemic changes. No need for echocardiogram Continue home statin (4) Tobacco abuse: Plan: #Current [id number]-88-dbsu-year smoker, did quit 3 days prior to admission due to acute illness. Encouraged ongoing smoking cessation Ordered nicotine patch as needed Plan #Prediabetes-most recent hemoglobin A1c 6.0% and he is not on medications at home Given steroid usage as an inpatient, will order Accu-Cheks and supplemental NovoLog, can add basal insulin if needed. Will monitor blood sugars and adjust as needed. Hemoglobin A1C 6.2 #Fatty liver/elevated AST-with known fatty liver demonstrated on liver ultrasound in 12/2023, here with AST elevated at 67 slightly worse than baseline. T. bili and ALT, alk phos all normal. Most likely secondary to baseline fatty liver and influenza can also elevate liver enzymes. No need for imaging Okay to continue home statin #GERD/chronic diarrhea-his diarrhea that was ongoing for 6 months he reports is now resolved. Continue PPI, Imodium as needed #Anxiety disorder-stable Continue home bupropion DVT prophylaxis-Lovenox SQ, SCDs Disposition-admitted to PCU but order placed to transfer to Med/Surg Admission and Anticipated Discharge Date Admission Date: July 12, 2024 Sylvester Núñez is a 68-year-old man with a history of prediabetes, GERD, fatty liver, HL, current smoker, chronic diarrhea. He presented to the ER with nonproductive cough, SOB, and sinus and chest congestion x 2 days. He was found to be positive for Influenza A in the Ed. CXR did not show pneumonia or evidence of HF. In the ED, he was placed on 3LNC 02 and quickly escalated to 20L and FiO2 of 40%. He was given IV steriods, nebulizer treatment, Ceftriaxone and Azithromycin in the ED. Today, he remains on 4LNC - nurses have been trying to wean him, however he desats with ambulation into the 80s. He states he has intermittent cough and wheezing, but feels these both are improved. He did have some vivid dreams last night where he thought he was at home with his , when he woke he states he was oriented. C/o sore throat yesterday, but states it has mostly resolved today. The thinks this may be secondary to his nebulizer treatments. He denies chest pain, N/V, headache, abdominal pain, constipation, diarrhea, urinary symptoms, fevers or chills. Review of Systems Constitutional: no fever and no chills Respiratory: + cough (Clear Sputum, Improving) and + wheezing (Intermittent); no chest congestion and no dyspnea Cardiovascular: no chest pain Gastrointestinal: no abdominal pain, no nausea, no vomiting, no constipation and no diarrhea/loose stools Genitourinary: no dysuria or no urinary frequency Integumentary: no rash Physical Exam Constitutional: WD/WN, vitals as above Eyes: PERRL, conjunctivae normal, anicteric sclerae ENMT: Throat: uvula midline; no posterior oropharynx abnormality, no tonsil abnormality, no uvular edema and no peritonsillar mass Respiratory: normal respiratory effort Auscultation: lungs clear to auscultation bilaterally (Faint RLL expiratory wheeze) Cardiovascular: Rate/Rhythm: regular rate and regular rhythm Extremities: no edema Gastrointestinal (Abdomen): Percussion/Palpation: abdomen soft; abdomen nontender Skin: no rashes Psychiatric: Orientation: alert and oriented x 3 Results & Data Results & Data Vital Signs (Past 12 Hours) Vital Signs Temp Pulse Pulse Resp BP Pulse Ox Pulse Ox 07/14/24 11:38 92 07/14/24 11:06 36.5 C 74 20 128/79 89 L 07/14/24 10:51 68 20 89 L 07/14/24 08:00 73 07/14/24 08:00 07/14/24 07:09 56 L 16 97 07/14/24 06:54 36.9 C 58 L 19 124/71 95 07/14/24 02:00 36.8 C 62 18 125/75 93 O2 Del Method O2 Del Method O2 Flow Rate O2 Flow Rate 07/14/24 11:38 Nasal Cannula 4 07/14/24 11:06 Room Air 07/14/24 10:51 Room Air 07/14/24 08:00 07/14/24 08:00 Nasal Cannula 4 07/14/24 07:09 Nasal Cannula 4 07/14/24 06:54 Nasal Cannula 4 07/14/24 02:00 Nasal Cannula 4 PG Care Time/CCT Total # of Minutes Spent Total Time Spent with Patient: Total time spent is greater than 50% in coordination of care (as documented) at patient's floor/unit and/or counseling patient: C[place] [address] SUB INP/OBS CARE 2/35MIN Patient Type Established History Expanded Problem Focused Exam Expanded Problem Focused Medical Decision Making Moderate Complexity Diagnoses Influenza A J10.1 Acute hypoxic respiratory failure J96.01 Elevated troponin R79.89 Tobacco abuse Z72.0
[2024-07-14] MEDS: CHLORASEPTIC (PHENOL) 1.4% SOLN 180 ML BTL MT PRN (17:01)
[2024-07-15 06:41] LABS: Creatinine Clr Calc Pharmacy 84.7 ml/min
[2024-07-15 07:04] VITALS: TEMP 98.1
[2024-07-15 10:54] VITALS: O2SAT 92
[2024-07-15 11:28] VITALS: BP 144/74; PULSE 81; RESP 19
--- NOTE | 2024-07-15 19:06 | Discharge Summary ---
Discharge Summary Date of Service July 15, 2024 Principal Dx & Hospital Course #1 = Principal Diagnosis (1) Influenza A: This patient is a 68-year-old male with a history of prediabetes, GERD, fatty liver, HL, current smoker, chronic diarrhea, who presents to the ER with nonproductive cough, SOB, and congestion x 2 days, found to have influenza A and acute respiratory failure with hypoxemia requiring high flow nasal cannula 20 L 40% FiO2 at the time of admission. #Influenza A/acute respiratory failure with hypoxemia-in the setting of him being a smoker but no formal diagnosis of COPD. CXR without pneumonia. Procalcitonin checked and negative so doubt secondary bacterial pneumonia. No antibiotics needed. treated with Tamiflu, steroids, bronchodilators symptoms improved significantly does not feel dyspneic however remained hypoxic day of discharge 90% on room air at rest, 85% on room air with ambulation. He was set up with home oxygen 2 L with activity suspect underlying COPD and exacerbation discharge medications Tamiflu few more doses, prednisone 20 mg daily x 5 days, albuterol as needed, started Symbicort follow-up in primary care recommend PFTs once acute illness resolved counseled smoking cessation he plans to quit, he declined nicotine replacement for now, he is on bupropion already (2) Acute hypoxic respiratory failure: See #1 (3) Elevated troponin: # minimally elevated high-sensitivity troponin Elevated troponin/hyperlipidemia-troponin mildly elevated at 29 --> 28 --> 30.5. Most likely myocardial demand ischemia as he denies chest pain and ECG is without ischemic changes. No need for echocardiogram Continue home statin (4) Tobacco abuse: #Current [id number]-[id number]-year smoker, did quit 3 days prior to admission due to acute illness. smoking cessation counseling provided Plan #Prediabetes and hepatic steatosis -most recent hemoglobin A1c 6.0% and he is not on medications at home - counseled with respect to healthy diet and increasing his activity level once over acute illness mild AST and ALT elevation over baseline probably related to influenza Okay to continue home statin #GERD/chronic diarrhea-his diarrhea that was ongoing for 6 months he reports is now resolved. Continue PPI, Imodium as needed #Anxiety disorder-stable Continue home bupropion Notes For Next Care Provider home oxygen 2 L with ambulation recommend formal evaluation for COPD Medication Changes From Visit prednisone, Tamiflu, albuterol, Symbicort added Admission HPI Per Admitting Provider This patient is a 68-year-old male with a history of prediabetes, GERD, fatty liver, HL, current smoker, chronic diarrhea, who presents to the ER with nonproductive cough, SOB, and sinus and chest congestion x 2 days. Denies N/V, no headache or abdominal pain, no diarrhea. His is also acutely ill with similar symptoms. He tested positive for influenza A in the ED. CXR did not show any pneumonia or evidence of heart failure. He initially was placed on 3 LNC O2 and quickly had to be escalated to high flow nasal cannula 20 L and FiO2 of 40%. He will be admitted for influenza A and acute respiratory failure with hypoxemia. In the ED, he was given IV steroids, nebulizer treatment, and a dose of ceftriaxone and azithromycin. Discharge Exam PHYSICAL EXAMINATION Last 24h vital signs reviewed, see documentation in flowsheet General: comfortable appearing, no distress HEENT: Normocephalic, atraumatic, pupils round and equal, sclerae anicteric, no conjunctival injection, moist mucus membranes Lungs: nonlabored, speaks in full sentences, prolonged expiratory phase, very minimal expiratory wheezing bilaterally, otherwise clear Heart: Regular rate and rhythm, no murmurs. No JVD Abdomen: nondistended Extremities: Warm, dry, well-perfused. No extremity edema. Neuro: Alert and oriented x 4, face symmetric, moves 4 extremities well Psych: Normal affect and behavior Discharge Plan Discharge Items Patient Disposition: Home - Self-Care Reason For Visit: FLU A,RESPIRATORY FAILURE Discharge Diagnosis: Influenza A, acute hypoxic respiratory failure Activity: Resume your previous activity Non-emergency contact: Primary Care Provider Call non-emergency contact if: you have any medication questions and your symptoms worsen Follow-up/Referrals: Mary Jane David MD [Primary Care Provider] - 07/23/24 12:00 pm Diet: Regular Addtl Attending Provider Instructions: You were treated for influenza A which caused low oxygen levels Because of your long smoking history it is also possible that you have underlying COPD (chronic obstructive pulmonary disease, one common type is emphysema) -treated with tamiflu (oseltamivir) and steroids (prednisone) -use albuterol inhaler as needed for shortness of breath -use control inhaler daily Right now you need 2 liters of oxygen with activity Its possible you might not need this in a few weeks once your lungs heal from influenza Its a great plan to stop smoking now. If you have strong cravings nicotine replacement can be helpful - you can buy gum, lozenges, or patches as the drug store and use as directed. Follow up with your doctor, you should probably have more pulmonary testing but we shouldn't do that until after the flu completely resolves For prediabetes and fatty liver: Follow a low sugar, moderate carbohydrate diet. Emphasizing protein (meat, fish, eggs) and vegetables is the best way to go. Avoid regular alcohol. Once your lungs are better, increase your activity level It was a pleasure taking care of you in the hospital, Janice Funez MD Pending Studies at Discharge: No Stand-Alone Forms: My [facility], Smoking Cessation Medications and DC Order Prescriptions: New oseltamivir [Tamiflu] 75 mg Capsule 75 mg PO BID Qty: 4 0RF prednisone 20 mg tablet 20 mg PO DAILY Qty: 5 0RF albuterol sulfate 90 mcg/actuation HFA aerosol inhaler 1 - 2 inh inhalation Q4H PRN (Reason: shortness of breath or wheezing) Qty: 8.5 0RF budesonide-formoterol [Breyna] 80-4.5 mcg/actuation HFA aerosol inhaler 1 inh inhalation BID Qty: 10.2 0RF Continued atorvastatin 10 mg tablet 10 mg PO QAM Qty: 90 3RF omeprazole 20 mg capsule,delayed release(DR/EC) 20 mg PO QAM Qty: 90 3RF bupropion HCl 150 mg tablet sustained-release 12 hr 150 mg PO BID Qty: 180 3RF Discharge Orders: Discharge Order (Routine); Ordered 07/15/24 Ordered By: Janice Funez Admission Data Admit Date/Time: 07/12/24 14:51 Attending Provider: Janice Funez Admit Provider: Charlene Brown Primary Care Provider: Mary Jane David Other Providers: Charlene Brown Other Interventions: Discharge Summary Assessment (RN) Last Done: 07/15/24 12:15 Hospital Stay Data Consultations 07/12/24 12:33 ED Decision to Admit Stat Pending Results Patient Have Any Pending Studies at Discharge: No Discharge Instructions Given to Patient (Per Discharging Provider) You were treated for influenza A which caused low oxygen levels Because of your long smoking history it is also possible that you have underlying COPD (chronic obstructive pulmonary disease, one common type is emphysema) -treated with tamiflu (oseltamivir) and steroids (prednisone) -use albuterol inhaler as needed for shortness of breath -use control inhaler daily Right now you need 2 liters of oxygen with activity Its possible you might not need this in a few weeks once your lungs heal from influenza Its a great plan to stop smoking now. If you have strong cravings nicotine replacement can be helpful - you can buy gum, lozenges, or patches as the drug store and use as directed. Follow up with your doctor, you should probably have more pulmonary testing but we shouldn't do that until after the flu completely resolves For prediabetes and fatty liver: Follow a low sugar, moderate carbohydrate diet. Emphasizing protein (meat, fish, eggs) and vegetables is the best way to go. Avoid regular alcohol. Once your lungs are better, increase your activity level It was a pleasure taking care of you in the hospital, Janice Funez MD Total Time Total Time Spent Total Time Spent (In Minutes): I personally spent: 40 minutes today on clinical care activities including: reviewing chart notes and vital signs discussion with foster care case manager, respiratory therapist, arranging and ordering home oxygen examining and counseling the patient writing orders writing prescriptions, discharge instructions documentation Coding Level of Care Code 94450 INP/OBS DISCH >30 MIN Diagnoses Influenza A J10.1 Acute hypoxic respiratory failure J96.01 Elevated troponin R79.89 Tobacco abuse Z72.0
== END 2024-07-15 15:02 | disposition home or self-care (01) | DRG 193 ==
LOC: ED 11:17 → 2S 14:51 → SUATTDRO 14:51 → 2S 16:24